=== PATIENT | female | born 1945 | race Caucasian/White ===

== ENCOUNTER 2019-03-10 13:36 | Emergency (ER) | payer MEDICARE, OTHER ==
[2019-03-10] MEDS ORDERED: HYDROcod/ACETAM 5/325 MG TABLET PO STA (15:01)
--- NOTE | 2019-03-10 15:03 | ED Physician Documentation ---
PD HPI MAJOR TRAUMA - Stated complaint Stated Complaint: FALL - Chief complaint Chief Complaint: Trauma Ch/Bk - History obtained from History obtained from: Patient - History of Present Illness Mechanism of injury: Fell (Yesterday morning at 4 AM she slipped and fell on slippery socks and injured both knees and her left chest. No head or neck injury. She tried Tylenol and Xanax without relief.) Review of Systems Constitutional: denies: Fever, Chills Cardiac: denies: Palpitations Respiratory: denies: Dyspnea, Cough GI: denies: Abdominal Pain PD PAST MEDICAL HISTORY - Present Medications Home Medications: Ambulatory Orders Medication Instructions Recorded Confirmed Hydrocodone/Acetaminophen 1 - 2 each PO Q6H PRN #20 tablet 03/10/19 [Hydrocodon-Acetaminophen 5-325] Tizanidine HCl 4 mg PO Q6HR PRN #15 capsule 03/10/19 - Allergies Allergies/Adverse Reactions: Allergies Allergy/AdvReac Type Severity Reaction Status Date / Time Unable to Assess Allergy Verified 03/10/19 13:45 PD ED PE NORMAL - Vitals Vital signs reviewed: Yes - General General: Alert and oriented X 3, No acute distress - Neck Neck: Supple, no meningeal sign, No bony TTP - Cardiac Cardiac: RRR, No murmur - Respiratory Respiratory: No respiratory distress, Clear bilaterally - Abdomen Abdomen: Non tender - Extremities Extremities: Other (She has had bilateral knee replacements, both knees are little tender in the right ones all bruised up without swelling. She says she is able to walk and bear weight. There is no hip tenderness or pain with internal or external rotation of the hips. The upper extremities are ranged and palpated without pain. She is tender over the left lateral lower ribs in the midaxillary line. No bruising seen there.) - Neuro Neuro: Alert and oriented X 3, Normal speech Results - Vitals Vitals: Vital Signs - 24 hr 03/10/19 13:46 Temperature 36.8 C Heart Rate 98 Respiratory 24 Rate Blood Pressure 151/100 H O2 Saturation 91 L Oxygen O2 Source Room air - Rads (name of study) L ribs XR and B knees XR Radiology: EMP read contemporaneously (No obvious rib fracture, small effusion of the right knee, bilateral prostheses.) PD MEDICAL DECISION MAKING - ED course ED course: 73-year-old [place] with fall yesterday morning with chest wall injury. No obvious rib fracture on x-ray. Also hit both knees, x-rays unremarkable. She felt better after hydrocodone here and also needed a refill of her tizanidine. She understands she cannot take them within several hours of each other. Departure - Departure Disposition: 01 Home, Self Care Clinical Impression: Contusion of chest wall Qualifiers: Encounter type: initial encounter Laterality: left Qualified Code(s): S20.212A - Contusion of left front wall of thorax, initial encounter Contusion of right knee Qualifiers: Encounter type: initial encounter Qualified Code(s): S80.01XA - Contusion of right knee, initial encounter Contusion of left knee Qualifiers: Encounter type: initial encounter Qualified Code(s): S80.02XA - Contusion of left knee, initial encounter Condition: Good Record reviewed to determine appropriate education?: Yes Instructions: ED Contusion Chest Wall Prescriptions: Tizanidine HCl 4 mg PO Q6HR PRN #15 capsule PRN Reason: Spasms Hydrocodone/Acetaminophen [Hydrocodon-Acetaminophen 5-325] 1 - 2 each PO Q6H PRN #20 tablet PRN Reason: pain Comments: Call your doctor to arrange a follow-up appointment, make the next available appointment. In the interim, return anytime if worse or if new symptoms develop. Do not drink or drive while taking narcotic pain medication. Note that many narcotic pain relievers also contain Tylenol/acetaminophen. Please ensure that your total dose of acetaminophen from all sources does not exceed 3 g (3000 mg) per day. You may get constipated while on this medication. Take a stool softener such as Colace twice a day while you are on it. Also add an caum-[id number]-hqidzbg laxative such as senna or MiraLAX on any day that you do not have a bowel movement. If you received a narcotic pain medication or sedative while in the emergency department, do not drive for the next 24 hours. Your blood pressure was elevated today on check into the emergency department. This does not mean that you have hypertension, it is a common phenomenon to come to the emergency department and have elevated blood pressure. I recommend that you see your primary care physician within the week to have it rechecked when you are feeling better. As discussed, the hydrocodone and tizanidine are both sedatives. Do not take 1 within 3 hours of the other.
--- NOTE | 2019-03-10 16:13 | XRAY Report ---
Reason: knee and L rib inj, GLF Procedure Date: 03/10/2019 Accession Number: [id number] / [id number] Procedure: XR - Ribs w/PA Chest LT CPT Code: FULL RESULT: EXAM: LEFT RIB RADIOGRAPHY EXAM DATE: 03/10/2019 03:25 PM. CLINICAL HISTORY: Ground-level fall, left knee and rib injury. Pain. COMPARISON: XR CHEST PA AND LAT 08/10/2007 4:08 PM. TECHNIQUE: 1 view of the chest and 2 views of the ribs. FINDINGS: Bones: No definite fracture identified. A large amount of overlying soft tissue somewhat limits evaluation. Bilateral total shoulder arthroplasties are normally located. Lungs: No focal opacities. No pneumothorax. No pleural effusions. Mediastinum: Heart and mediastinal contours are unremarkable. Other: None. IMPRESSION: No acute fracture or pneumothorax evident. RADIA
--- NOTE | 2019-03-10 16:22 | XRAY Report ---
Reason: knee and L rib inj, GLF Procedure Date: 03/10/2019 Accession Number: [id number] / [id number] Procedure: XR - Knee 2 View BILAT CPT Code: FULL RESULT: EXAMS: 1. Right Knee Radiography 2. Left Knee Radiography EXAM DATE:03/10/2019 03:25 PM. CLINICAL HISTORY:Knee injury status post ground level fall. COMPARISON: None. TECHNIQUE: 2 views each. FINDINGS: Right Knee: Bones: An old healed proximal right fibular diaphyseal fracture is noted. Diffuse osteopenia. No acute fracture. Joints: A 3 component total knee arthroplasty is present without loosening or malalignment. A small joint effusion evident. Soft Tissues: Normal. No soft tissue swelling. Left Knee: Bones: Diffuse osteopenia present. No acute fracture visualized. Joints: 3 component total knee arthroplasty is present without loosening or malalignment. No joint effusion. Soft Tissues: Normal. No soft tissue swelling. IMPRESSION: 1. Small right knee joint effusion. 2. Bilateral total knee arthroplasties without evidence of complication. 3. No acute fracture. 4. 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 RADIA
[2019-03-10 17:08] VITALS: BP 129/94
== END 2019-03-10 17:38 | disposition home or self-care (01) ==
LOC: ED 13:36
DX: S20.212A Contusion of left front wall of thorax, initial encounter (principal); S80.01XA Contusion of right knee, initial encounter; S80.02XA Contusion of left knee, initial encounter; W01.0XXA Fall on same level from slipping, tripping and stumbling without subsequent striking against object, initial encounter; Z96.653 Presence of artificial knee joint, bilateral
CPT/HCPCS: 71101; 73565; 99283; A9270

== ENCOUNTER 2019-03-15 17:36 | Emergency (ER) | payer MEDICARE, OTHER ==
--- NOTE | 2019-03-15 18:34 | ED Physician Documentation ---
PD HPI Fall - Stated complaint Stated Complaint: GLF/LT KNEE, RT FOOT - Chief complaint Chief Complaint: Ext Problem - History obtained from History obtained from: Patient - History of Present Illness Mechanism of injury: Lost balance Fall distance: Standing position Where injury occurred: Home (visiting relatives here) Timing - onset: Today Injury(ies) location: Chest (she had fallen few days ago and hurt right chest and knee. She says she hurt knee and ankle today, when her feet got cuaght on her husbands legs (they are staying in guest room that is unfamiliar and smaller than their usual). She says her chest hurt again more when the medics picked her up by her arms and shoulders.), Right Lower Extremity (knee and ankle) Associated symptoms: No: LOC, AMS, Neck pain Similar symptoms before: Diagnosis (fall few days ago as well; she denies fe eling lightheaded nor syncope.) Review of Systems Constitutional: denies: Fever Nose: denies: Rhinorrhea / runny nose, Congestion Throat: denies: Sore throat Respiratory: denies: Cough GI: denies: Nausea, Vomiting, Diarrhea, Bloody / black stool PD PAST MEDICAL HISTORY - Past Medical History Past Medical History: Yes : Retention Psych: Depression, Anxiety - Past Surgical History Past Surgical History: Yes Ortho: Knee replacement - Present Medications Home Medications: Ambulatory Orders Medication Instructions Recorded Confirmed Hydrocodone/Acetaminophen 1 - 2 each PO Q6H PRN #20 tablet 03/10/19 [Hydrocodon-Acetaminophen 5-325] Tizanidine HCl 4 mg PO Q6HR PRN #15 capsule 03/10/19 Methocarbamol [Robaxin] 500 mg PO Q6H PRN #30 tablet 03/15/19 Naproxen 375 mg PO BID #20 tablet 03/15/19 Oxycodone HCl/Acetaminophen 1 each PO Q4H PRN #25 tablet 03/15/19 [Percocet 5-325 mg Tablet] - Allergies Allergies/Adverse Reactions: Allergies Allergy/AdvReac Type Severity Reaction Status Date / Time lots of antibiotics Allergy Unknown Uncoded 03/15/19 17:53 - Social History Does the pt smoke?: No Smoking Status: Never smoker Does the pt drink ETOH?: No Does the pt have substance abuse?: No - Immunizations Immunizations are current?: Yes PD ED PE NORMAL - Vitals Vital signs reviewed: Yes - General General: Alert and oriented X 3, Well developed/nourished - HEENT HEENT: Atraumatic - Neck Neck: Supple, no meningeal sign, No adenopathy - Cardiac Cardiac: RRR, No murmur - Respiratory Respiratory: Clear bilaterally, Other (some rigth posterolateral chestwall tenderness without crepitance nor deformity. ) - Abdomen Abdomen: Soft, Non tender - Back Back: No CVA TTP - Derm Derm: Normal color, Warm and dry - Extremities Extremities: Other (right knee with tenderness anterolaterally. No deformity. Right ankle with lateral tenderness and mild swelling. No bony tenderness. Toes not tender. ) Results - Vitals Vitals: Oxygen O2 Source Room air - Rads (name of study) right knee Radiology: Prelim report reviewed (no fractures nor displacement of implants), See rad report right ankle Radiology: Prelim report reviewed (no fractures) PD MEDICAL DECISION MAKING - ED course Complexity details: reviewed results, considered differential, d/w patient Departure - Departure Disposition: 01 Home, Self Care Clinical Impression: Fall from slip, trip, or stumble Qualifiers: Encounter type: initial encounter Qualified Code(s): W01.0XXA - Fall on same level from slipping, tripping and stumbling without subsequent striking against object, initial encounter Foot sprain Qualifiers: Encounter type: initial encounter Laterality: right Qualified Code(s): S93.601A - Unspecified sprain of right foot, initial encounter Knee contusion Qualifiers: Encounter type: initial encounter Laterality: left Qualified Code(s): S80.02XA - Contusion of left knee, initial encounter Chest wall contusion Qualifiers: Encounter type: subsequent encounter Laterality: left Qualified Code(s): S20.212D - Contusion of left front wall of thorax, subsequent encounter Condition: Stable Record reviewed to determine appropriate education?: Yes Prescriptions: Methocarbamol [Robaxin] 500 mg PO Q6H PRN #30 tablet PRN Reason: Spasms Naproxen 375 mg PO BID #20 tablet Oxycodone HCl/Acetaminophen [Percocet 5-325 mg Tablet] 1 each PO Q4H PRN #25 tablet PRN Reason: pain Comments: No fractures or bony problems seen on your knee or foot. Use naproxen anti- inflammatory twice daily for the next 7-10 days. Take it with food. Add Tylenol or oxycodone as needed for pain. He can use muscle relaxant as needed as well for spasms and stiffness. Recheck if not improving over the next several days to week or so. Discharge Date/Time: 03/15/19 20:54
[2019-03-15] MEDS ORDERED: traMADol 50 MG TABLET PO STA (19:00)
--- NOTE | 2019-03-15 20:08 | XRAY Report ---
Reason: fall today again Procedure Date: 03/15/2019 Accession Number: [id number] / [id number] Procedure: XR - Foot 3 View RT CPT Code: FULL RESULT: EXAM: RIGHT FOOT RADIOGRAPHY EXAM DATE: 03/15/2019 07:45 PM. CLINICAL HISTORY: Fall today again. COMPARISON: None. TECHNIQUE: 3 views. FINDINGS: Bones: No acute fractures or suspicious bone lesions. Small plantar calcaneal spur. Joints: No subluxations. Soft Tissues: Unremarkable. IMPRESSION: No acute radiographic abnormalities. RADIA
--- NOTE | 2019-03-15 20:09 | XRAY Report ---
Reason: fall today again Procedure Date: 03/15/2019 Accession Number: [id number] / [id number] Procedure: XR - Knee 2 View LT CPT Code: FULL RESULT: EXAM: LEFT KNEE RADIOGRAPHY EXAM DATE: 03/15/2019 07:45 PM. CLINICAL HISTORY: Fall today again. COMPARISON: KNEE 2 VIEW BILAT 03/10/2019 3:03 PM. TECHNIQUE: 3 views. FINDINGS: Bones: Total left knee arthroplasty is present without hardware breaks or loosening. No acute fractures. Joints: Small effusion. No subluxations. Soft Tissues: Unremarkable. IMPRESSION: Small knee effusion. No acute fractures. RADIA
[2019-03-15] MEDS ORDERED: METHOCARBAMOL 500 MG TABLET PO STA (20:20)
[2019-03-15] MEDS ORDERED: HYDROmorphone 2 MG/ML VIAL IM STA (20:20)
[2019-03-15] MEDS ORDERED: KETOROLAC 30 MG/ML VIAL IM STA (20:20)
[2019-03-15 20:27] VITALS: BP 114/95
== END 2019-03-15 20:54 | disposition home or self-care (01) ==
LOC: ED 17:36
DX: S93.601A Unspecified sprain of right foot, initial encounter (principal); S80.01XA Contusion of right knee, initial encounter; S20.212A Contusion of left front wall of thorax, initial encounter; W01.0XXA Fall on same level from slipping, tripping and stumbling without subsequent striking against object, initial encounter; Y92.009 Unspecified place in unspecified non-institutional (private) residence as the place of occurrence of the external cause
CPT/HCPCS: 73560; 73630; 96372; 99283; A9270; J1170